=== PATIENT | male | born 1940 | race Caucasian/White ===

== ENCOUNTER → 2017-03-21 | Outpatient (CLI) | payer MEDICARE, OTHER ==
[~2017-03-21] MED LIST: AMLO5TAB PO; ASPIRIN 81MG TA81 MG PO; LIPITOR40 M1 PO; LISINOPRIL 20MG20 MG PO; METOPROLOL TAR100 MG PO; PROAIR HFA0.09 MG/AC IH
[2017-03-21 11:18] LABS: BILIRUBIN, INDIRECT 0.64 mg/dL (0-0.9)
[2017-03-21 11:45] VITALS: BP 142/79
[2017-03-21 12:00] VITALS: BP 147/74
--- NOTE | 2017-03-21 14:25 | RADIOLOGY REPORT PS360 ---
EXAM: CT LUNG LOW DOSE WO CONTRAST COMPARISON: None HISTORY: Asymptomatic 76 year old male with greater than 30 pack-year smoking history ORDERING PHYSICIAN: LEANA AYON MD PATIENT AGE: 76 years TECHNIQUE: The exam was performed on a GE Light Speed [address] scanner using 2.96 mGy CTDI. A low dose helical CT CHEST was performed on a multi-detector scanner The LDCT was performed in a facility that meets the criteria for the screening program. Data regarding this exam was submitted to [employer] which is an approved registry. The order for this exam indicates that it came as a result of a lung cancer screening counseling shard decision-making visit that included all the elements required of such a visit including smoking cessation. The radiologist interpreting this exam meets the [facility] criteria for the LDCT lung cancer screening program. The exam is reported using the Lung-RADS classification scale and reported to the [employer]CR registry. NOTE: This study was performed for the specific purposes of lung cancer screening and is not an alternative to diagnostic chest CT. RADIATION DOSE: CTDI vol(CT dose Index-volume) = 2.96mG DLP (Dose Length Product) = 125.72 mGcm FINDINGS: In the right upper lobe there is a area of probable parenchymal fibrosis measuring 12 x 12 mm. In the left upper lobe there is a somewhat irregular nodule with ill-defined margins measuring 14 x 12 mm. There is some mild left apical pleural calcification. A calcific density is present in the right apex as well. There are centrilobular and paraseptal emphysematous changes. No effusions. Coronary artery calcifications are present. An aortic stent graft is present and is incompletely imaged with aorta measuring up to 4.9 cm transverse dimension. IMPRESSION: 1. Lung RADS Category: 4A regarding left upper lobe nodule 2. Other findings: Emphysematous change Coronary artery disease. Abdominal aortic aneurysm RECOMMENDATIONS: PET/CT for further evaluation of the suspicious left upper lobe nodule
--- NOTE | 2017-03-21 19:46 | RADIOLOGY REPORT PS360 ---
PROCEDURE: 2-D M-mode and color Doppler study INDICATIONS FOR THE TEST: Chest pain X COPDX Heart Murmur Tobacco SmokingX Palpitations Fatigue Syncope Edema HypertensionXDiabetes Mellitus Rheumatic Fever SOB ROGERS Obesity HyperlipidemiaX Family History HD Additional History DIZZINESS,PVD PATIENT INFORMATION HEIGHT: 70 WEIGHT:152 GENDER: Male B/P:166/90 2-D/M-MODE INTERPRETATION: 2-D MEASUREMENTS OBSERVED VALUES IN CMS Right Ventricular Dimension (RVDd) 2.5 Interventricular Septum (Thickness)(IVsd) 1.5 Left Ventricular Internal Dimensions(LVIDd) 2.2 Left Ventricular Posterior Wall (Thickness)(LVPWd) 1.5 Aortic Root 3.3 Aortic Cusp Separation 2.0 Left Atrial Dimensions (LAD) 2.5 2D 1. Left atrium is mildly enlarged, left ventricle is normal size, there is mild concentric left ventricular hypertrophy, visually estimated ejection fraction 55% with no obvious regional wall motion abnormality. 2. The right atrium and right ventricle are moderately enlarged, contractility of the right ventricle is normal. 3. The aortic valve is minimally thickened and fibrosed. 4. The mitral and tricuspid valve leaflets are minimally thickened. 5. The pulmonic valve is poorly visualized. 6. No significant pericardial effusion noted. DOPPLER INTERROGATION: Doppler interrogation of the aortic, mitral and tricuspid valvular presence of mild mitral and moderate tricuspid regurgitation, calculated right ventricular systolic pressure is 61 mmHg consistent with moderate pulmonary hypertension, diastolic parameters are inconclusive CONCLUSION: 1. Biatrial enlargement, normal left ventricular size, visually estimated ejection fraction 55% with no obvious regional wall motion abnormality, diastolic parameters are inconclusive. 2. Moderately enlarged right atrium and right ventricle, contractility of the right ventricle is normal. 3. Mild mitral and moderate tricuspid regurgitation, calculated right ventricular systolic pressure is 61 mmHg consistent with moderate pulmonary hypertension. 4. No significant pericardial effusion noted.
== END ==
LOC: RAD 08:00 → LAB 08:07 → RAD 08:07 → RT 10:00
PROVIDERS: Internal Medicine
DX: R06.02 Shortness of breath (principal); Z87.891 Personal history of nicotine dependence; Z71.6 Tobacco abuse counseling; I25.10 Atherosclerotic heart disease of native coronary artery without angina pectoris; I10 Essential (primary) hypertension; E78.5 Hyperlipidemia, unspecified; J44.9 Chronic obstructive pulmonary disease, unspecified
CPT/HCPCS: G0297